=== PATIENT | female | born 1995 ===

== ENCOUNTER 2017-04-11 03:10 | Emergency (ER) | payer OTHER ==
[2017-04-11 03:11] VITALS: BMI 31.8
[2017-04-11 03:26] VITALS: BP 142/69; PULSE 93; RESP 18; TEMP 98.8; O2SAT 98
[2017-04-11] MEDS ORDERED: Sodium Chloride 0.9% 1,000 ML IV STA (03:39)
--- NOTE | 2017-04-11 03:47 | ED PDOC ---
HPI: Abdomen Time Seen by Provider: 04/11/17 03:14 Chief Complaint (Nursing): GI Problem Chief Complaint (Provider): Vomiting History Per: Patient History/Exam Limitations: no limitations Onset/Duration Of Symptoms: Hrs Outside of [place] travel?: No Current Symptoms Are (Timing): Still Present Location Of Pain/Discomfort: Epigastric Additional Complaint(s): Alannah Nath, a 21 year old female, presents to the ED complaining of vomiting. The patient states drank a lot of alcohol last night and reports that she woke up at 3am with vomiting and it has not stopped since. Denies fever and diarrhea but does admit to some epigastric pain. Past Medical History Reviewed: Historical Data, Nursing Documentation, Vital Signs Vital Signs: Last Vital Signs Temp 98.8 F 04/11/17 03:22 Pulse 93 H 04/11/17 03:22 Resp 18 04/11/17 03:22 BP 142/69 04/11/17 03:22 Pulse Ox 98 04/11/17 05:59 - Medical History PMH: No Chronic Diseases - Surgical History Surgical History: No Surg Hx, Appendectomy - Family History Family History: States: Unknown Family Hx - Social History Current smoker - smoking cessation education provided: No Ex-Smoker (has not smoked in the last 12 months): No Alcohol: Social Drugs: Denies - Home Medications Home Medications: Ambulatory Orders Medication Instructions Recorded Nitrofurantoin Macrocrystals 100 mg PO BID #10 cap 11/25/16 [Macrobid] - Allergies Allergies/Adverse Reactions: Allergies Allergy/AdvReac Type Severity Reaction Status Date / Time No Known Allergies Allergy Verified 04/11/17 03:21 Review of Systems ROS Statement: Except As Marked, All Systems Reviewed And Found Negative Constitutional: Negative for: Fever Gastrointestinal: Positive for: Vomiting, Abdominal Pain (Epigastric pain). Negative for: Diarrhea Physical Exam - Reviewed Nursing Documentation Reviewed: Yes Vital Signs Reviewed: Yes - Physical Exam Appears: Positive for: Non-toxic, No Acute Distress Head Exam: Positive for: ATRAUMATIC, NORMAL INSPECTION, NORMOCEPHALIC Skin: Positive for: Normal Color, Warm, Dry Eye Exam: Positive for: Normal appearance, EOMI, PERRL ENT: Positive for: Normal ENT Inspection Neck: Positive for: Normal, Painless ROM, Supple Cardiovascular/Chest: Positive for: Regular Rate, Rhythm, Chest Non Tender. Negative for: Tachycardia Respiratory: Positive for: Normal Breath Sounds. Negative for: Wheezing, Respiratory Distress Gastrointestinal/Abdominal: Positive for: Bowel Sounds, Soft, Tenderness (Mild epigastric tenderness). Negative for: Guarding, Rebound Back: Positive for: Normal Inspection Extremity: Positive for: Normal ROM. Negative for: Tenderness, Pedal Edema, Deformity, Swelling Neurologic/Psych: Positive for: Alert, Oriented - Laboratory Results Result Diagrams: 04/11/17 04:28 04/11/17 04:28 - ECG O2 Sat by Pulse Oximetry: 98 (RA) Pulse Ox Interpretation: Normal Medical Decision Making Medical Decision Makin Initial impression: 21 year old female presenting with vomiting post alcohol ingestion Initial Plan: * Alcohol serum * Comp metabolic panel * Lipase * CBC * Pepcid 20mg IVP * Zofran 4m IV * NS 1000mls IV 999mls/hr * Reevaluation Rule out alcohol induced emesis. 5:57 Patient is feeling better and is tolerating po. Patient is stable and will be discharged home. - Scribe Attestation Documented by Thao Parker acting as a scribe for Tati Nicole MD. Provider Attestation All medical record entries made by the Scribe were at my direction and personally dictated by me. I have reviewed the chart and agree that the record accurately reflects my personal performance of the history, physical exam, medical decision making, and the department course for this patient. I have also personally directed, reviewed, and agree with the discharge instructions and disposition. Disposition - Clinical Impression Clinical Impression: Vomiting - Patient ED Disposition Is Patient to be Admitted: No Counseled Patient/Family Regarding: Diagnosis - Disposition Referrals: Pati Lara [Primary Care Provider] - Disposition: Routine/Home Disposition Time: 05:20 Condition: GOOD Additional Instructions: follow up with your primary doctor in 1-2 days return to ED with any worsening or concerning symptom.s Instructions: Acute Nausea and Vomiting (ED)
[2017-04-11 04:31] LABS: BASO % 0.3 % (0.0-2.0); EOS % 0.4 % (0.0-4.0); HEMOGLOBIN 12.7 g/dL (12.0-16.0); LYMPH % 15.1 % (20.0-40.0); MEAN CELL VOLUME 85.8 fl (81.0-99.0); MEAN CORPUSCULAR HEMOGLOBIN 29.4 pg (27.0-31.0); MEAN CORPUSCULAR HGB CONC 34.3 g/dL (33.0-37.0); MEAN PLATELET VOLUME 8.2 fl (7.2-11.7); MONO # 0.8 K/uL (0.0-0.8); MONO % 5.9 % (0.0-10.0); NEUT # 10.2 K/uL (1.8-7.0); NEUT % 78.3 % (50.0-75.0); RBC 4.32 Mil/uL (3.80-5.20); RED CELL DISTRIBUTION WIDTH 13.6 % (11.5-14.5)
[2017-04-11 04:40] LABS: ALB/GLOB RATIO 1.5 (1.0-2.1); ALBUMIN 4.5 g/dL (3.5-5.0); ALT/SGPT 42 U/L (9-52); AST/SGOT 33 U/L (14-36); BLOOD UREA NITROGEN 11 mg/dl (7-17); CALCIUM 9.5 mg/dL (8.4-10.2); GFR AFRICAN-AMERICAN > 60; GFR NON-AFRICAN AMERICAN > 60; LIPASE 60 U/L (23-300)
== END 2017-04-11 06:21 | disposition home or self-care (01) ==
LOC: H.ER 03:10
DX: R11.10 Vomiting, unspecified (principal); Z87.891 Personal history of nicotine dependence

== ENCOUNTER 2017-04-27 21:11 | Emergency (ER) | payer OTHER ==
[2017-04-27 21:11] VITALS: BMI 31.8
[2017-04-27 21:26] VITALS: BP 121/66; PULSE 87; RESP 16; TEMP 98; O2SAT 100
--- NOTE | 2017-04-27 22:06 | ED PDOC ---
HPI: Abdomen Time Seen by Provider: 04/27/17 21:35 Chief Complaint (Nursing): Female Genitourinary Chief Complaint (Provider): Lower Abdominal Pain and Lower Back Pain History Per: Patient History/Exam Limitations: no limitations Onset/Duration Of Symptoms: Days (x7 days) Outside of [place] travel?: No Current Symptoms Are (Timing): Still Present Associated Symptoms: denies: Fever, Vomiting Additional Complaint(s): Alannah Nath, a 21 year old female, presents to the ED with complaints of intermittent abdominal pain and lower back pain x1 week. The patient reports that today the pain got worse and became constant and is now radiating into the vaginal area. She states that she feels some burning when she urinates. The patient reports that she has not taken anything for the pain. Denies vomiting, fever but did note some loose stools today. Past Medical History Reviewed: Historical Data, Nursing Documentation, Vital Signs Vital Signs: Last Vital Signs Temp 98.0 F 04/27/17 21:23 Pulse 87 04/27/17 21:23 Resp 16 04/27/17 21:23 BP 121/66 04/27/17 21:23 Pulse Ox 100 04/28/17 01:37 - Medical History PMH: No Chronic Diseases - Surgical History Surgical History: Appendectomy, - Family History Family History: States: Unknown Family Hx - Home Medications Home Medications: Ambulatory Orders Medication Instructions Recorded Nitrofurantoin Macrocrystals 100 mg PO BID #10 cap 04/28/17 [Macrobid] - Allergies Allergies/Adverse Reactions: Allergies Allergy/AdvReac Type Severity Reaction Status Date / Time No Known Allergies Allergy Verified 04/11/17 03:21 Review of Systems ROS Statement: Except As Marked, All Systems Reviewed And Found Negative Constitutional: Negative for: Fever Gastrointestinal: Positive for: Abdominal Pain (lower abdominal pain) Genitourinary Female: Positive for: Dysuria Musculoskeletal: Positive for: Back Pain (Lower back pain) Physical Exam - Reviewed Nursing Documentation Reviewed: Yes Vital Signs Reviewed: Yes - Physical Exam Appears: Positive for: Non-toxic, Uncomfortable Head Exam: Positive for: ATRAUMATIC, NORMAL INSPECTION, NORMOCEPHALIC Skin: Positive for: Normal Color, Warm, Dry Eye Exam: Positive for: Normal appearance, EOMI, PERRL Neck: Positive for: Normal, Painless ROM, Supple Cardiovascular/Chest: Positive for: Regular Rate, Rhythm, Chest Non Tender. Negative for: Tachycardia Respiratory: Positive for: Normal Breath Sounds. Negative for: Wheezing, Respiratory Distress Gastrointestinal/Abdominal: Positive for: Bowel Sounds, Soft, Tenderness ( Suprapubic tenderness). Negative for: Distended, Guarding, Rebound Back: Positive for: Normal Inspection, Vertebral Tenderness (Lower back tenderness paraspinally). Negative for: L CVA Tenderness, R CVA Tenderness Extremity: Positive for: Normal ROM. Negative for: Tenderness, Pedal Edema, Deformity, Swelling Neurologic/Psych: Positive for: Alert, Oriented - Laboratory Results Result Diagrams: 04/27/17 22:58 04/27/17 22:58 - ECG O2 Sat by Pulse Oximetry: 100 (RA) Pulse Ox Interpretation: Normal Medical Decision Making Medical Decision Makin Initial Impression: 21 year old female presenting with abdominal pain and back pain Differentials: UTI, Associated Complications rule out ovarian cyst/ rupture Initial Plan: * Comp Metabolic Panel * Upreg * Udip * CBC * Reevaluation Upreg results are positive. Therefore ectopic and threatened are now being considered. -Transvaginal US ordered. 134 US Transvaginal FINDINGS: Gestation: Single live intrauterine gestation. heart rate of 152 beats per minute. [place]-rump length of 0.37 cm, correlating with gestational age of 6 weeks 0 days. Uterus/cervix: No subchorionic hemorrhage. No cervical dilatation or effacement. Ovaries: RIGHT ovary: Normal. LEFT ovary: 1.8 x 2.3 x 1.9 cm hypoechoic lesion with internal echoes. No adnexal masses. Free fluid: No significant free fluid. IMPRESSION: 1. Single live intrauterine gestation. 2. Probable complex LEFT ovarian cyst. 3. Incidental/non-acute findings are described above. Scribe Attestation Documented by Thao Parker and Gale Borjas acting as a scribe for Miko Ireland MD. Provider Attestation: All medical record entries made by the Scribe were at my direction and personally dictated by me. I have reviewed the chart and agree that the record accurately reflects my personal performance of the history, physical exam, medical decision making, and the department course for this patient. I have also personally directed, reviewed, and agree with the discharge instructions and disposition. Disposition - Clinical Impression Clinical Impression: Abdominal pain during , UTI (urinary tract infection) - Patient ED Disposition Is Patient to be Admitted: No Doctor Will See Patient In The: Office Counseled Patient/Family Regarding: Studies Performed, Diagnosis, Need For Followup - Disposition Referrals: [facility] [Outside] Disposition: Routine/Home Disposition Time: 01:37 Condition: GOOD Additional Instructions: Take tylenol for pain. Take vitamins daily. Follow up with your PCP in 2-3 days. Prescriptions: Nitrofurantoin Macrocrystals [Macrobid] 100 mg PO BID #10 cap Instructions: Abdominal Pain in (ED), Urinary Tract Infection in Women (DC)
[2017-04-27 23:02] LABS: BASO # 0.1 K/uL (0.0-0.2); BASO % 0.8 % (0.0-2.0); EOS # 0.1 K/uL (0.0-0.7); EOS % 1.3 % (0.0-4.0); HEMATOCRIT 36.4 % (34.0-47.0); LYMPH # 2.5 K/uL (1.0-4.3); LYMPH % 26.9 % (20.0-40.0); MEAN CELL VOLUME 88.3 fl (81.0-99.0); MEAN CORPUSCULAR HEMOGLOBIN 28.9 pg (27.0-31.0); MEAN CORPUSCULAR HGB CONC 32.7 g/dL (33.0-37.0); MEAN PLATELET VOLUME 8.6 fl (7.2-11.7); MONO # 0.7 K/uL (0.0-0.8); MONO % 7.2 % (0.0-10.0); NEUT % 63.8 % (50.0-75.0); NRBC % 0.1 % (0.0-0.0); RED CELL DISTRIBUTION WIDTH 13.5 % (11.5-14.5); WHITE BLOOD COUNT 9.4 K/uL (4.8-10.8)
[2017-04-27 23:17] LABS: ALB/GLOB RATIO 1.5 (1.0-2.1); ALKALINE PHOSPHATASE 71 U/L (38-126); ALT/SGPT 42 U/L (9-52); AST/SGOT 26 U/L (14-36); BILIRUBIN,TOTAL 0.4 mg/dl (0.2-1.3); BLOOD UREA NITROGEN 12 mg/dl (7-17); CARBON DIOXIDE 22 mmol/L (22-30); CHLORIDE 106 mmol/L (98-107); GFR AFRICAN-AMERICAN > 60; GLUCOSE,RANDOM 90 mg/dL (65-105); POTASSIUM 4.3 MMOL/L (3.6-5.0); SODIUM 139 mmol/l (132-148); TOTAL PROTEIN 7.2 G/DL (6.3-8.2)
--- NOTE | 2017-04-28 01:33 | US ---
EXAM: US , Transvaginal CLINICAL HISTORY: 21 years old, female; Pain; Other: Vaginal pain, back pain, abd pain; Gestational age or lmp: Lmp 02/23/2017; ; Additional info: Lower abdominal pain TECHNIQUE: Real-time transvaginal obstetrical ultrasound of the maternal pelvis and a first trimester with image documentation. Transvaginal imaging was used for better evaluation of the fetus and adnexa. COMPARISON: US - TRANSVAGINAL 03/02/2016 1:05:40 AM FINDINGS: Gestation: Single live intrauterine gestation. heart rate of 152 beats per minute. [place]-rump length of 0.37 cm, correlating with gestational age of 6 weeks 0 days. Uterus/cervix: No subchorionic hemorrhage. No cervical dilatation or effacement. Ovaries: RIGHT ovary: Normal. LEFT ovary: 1.8 x 2.3 x 1.9 cm hypoechoic lesion with internal echoes. No adnexal masses. Free fluid: No significant free fluid. IMPRESSION: 1. Single live intrauterine gestation. 2. Probable complex LEFT ovarian cyst. 3. Incidental/non-acute findings are described above.
== END 2017-04-28 02:15 | disposition home or self-care (01) ==
LOC: H.ER 21:11
DX: O23.40 Unspecified infection of urinary tract in pregnancy, unspecified trimester (principal)

== ENCOUNTER 2017-05-20 22:55 | Emergency (ER) | payer OTHER ==
[2017-05-20 22:56] VITALS: BMI 31.8
[2017-05-20 23:12] VITALS: RESP 16
[2017-05-20 23:52] LABS: BASO # 0.1 K/uL (0.0-0.2); BASO % 0.6 % (0.0-2.0); EOS # 0.1 K/uL (0.0-0.7); EOS % 1.1 % (0.0-4.0); HEMOGLOBIN 12.2 g/dL (12.0-16.0); LYMPH # 2.7 K/uL (1.0-4.3); LYMPH % 21.7 % (20.0-40.0); MEAN CELL VOLUME 87.9 fl (81.0-99.0); MEAN PLATELET VOLUME 8.8 fl (7.2-11.7); MONO # 0.8 K/uL (0.0-0.8); MONO % 6.1 % (0.0-10.0); NEUT # 8.8 K/uL (1.8-7.0); NEUT % 70.5 % (50.0-75.0); NRBC % 0.1 % (0.0-0.0); RBC 4.2 Mil/uL (3.80-5.20); RED CELL DISTRIBUTION WIDTH 13.2 % (11.5-14.5); WHITE BLOOD COUNT 12.4 K/uL (4.8-10.8)
[2017-05-21 00:04] LABS: SQUAMOUS EPITHIAL 3 /hpf (0-5); URINE BACTERIA RARE (<OCC); URINE BILIRUBIN NEGATIVE (NEGATIVE); URINE BLOOD NEGATIVE (NEGATIVE); URINE CLARITY SLIGHTY-CLOUDY (Clear); URINE COLOR YELLOW (YELLOW); URINE GLUCOSE (UA) NEG (Normal); URINE LEUKOCYTE ESTERASE TRACE Leu/uL (Negative); URINE NITRATE POSITIVE (NEGATIVE); URINE PROTEIN NEGATIVE (NEGATIVE); URINE UROBILINOGEN 0.2-1.0 mg/dL (0.2-1.0)
[2017-05-21 00:08] LABS: ALB/GLOB RATIO 1.3 (1.0-2.1); ALBUMIN 4.2 g/dL (3.5-5.0); ALT/SGPT 31 U/L (9-52); AST/SGOT 25 U/L (14-36); BLOOD UREA NITROGEN 9 mg/dl (7-17); CALCIUM 9.2 mg/dL (8.4-10.2); GFR AFRICAN-AMERICAN > 60; GFR NON-AFRICAN AMERICAN > 60; LIPASE 62 U/L (23-300)
--- NOTE | 2017-05-21 01:19 | US ---
EXAM: US Uterus, Limited CLINICAL HISTORY: 22 years old, female; Pain; Other: Rt adnexal tenderness; Gestational age or lmp: 02/16/17; ; Additional info: Right adnexal tenderness TECHNIQUE: Real-time ultrasound of the maternal uterus (limited) with image documentation. COMPARISON: US - OB TRANSVAGINAL 04/28/2017 12:58:38 AM FINDINGS: A single intrauterine gestation is identified with a crown-rump length measuring 2.6 cm, corresponding to an approximate gestational age of 9 weeks and 2 days. cardiac activity is identified at a rate of 162 beats per minute. The cervix measures 5 cm, and is closed. The right ovary is unremarkable in echogenicity and size measuring 2.9 x 1.0 x 2.6 cm. The left ovary is increased in size measuring 3.2 x 2.3 x 2.8 cm. A complex focus is identified with in the left ovary measuring 2.2 x 1.7 x 2.1 cm. No free fluid is detected. IMPRESSION: Single intrauterine gestation with an approximate gestational age of 9 weeks and 2 days. cardiac activity is identified. The cervix is closed. Complex cyst within the left ovary measuring 2.2 cm in greatest dimension. Right ovary is unremarkable. Please correlate these findings with the serum beta hCG with short term followup, recommended.
--- NOTE | 2017-05-21 01:20 | US ---
EXAM: US Abdomen Limited, Right Upper Quadrant CLINICAL HISTORY: 22 years old, female; Signs and symptoms; Vomiting; ; Additional info: R/O gallstones TECHNIQUE: Real-time ultrasound of the right upper quadrant with image documentation. COMPARISON: No relevant prior studies available. FINDINGS: Liver: The liver is unremarkable in size measuring 14.7 cm in longitudinal dimension. No intrahepatic bile duct dilation. Gallbladder: No acute findings. No gallstones. Common bile duct: No stones. No dilation, measuring 3 mm. Pancreas: Visualization of the pancreas is limited by overlying bowel gas. Right kidney: No acute findings. No obstructing stones. No solid mass. No hydronephrosis. IMPRESSION: Unremarkable sonographic evaluation of the right upper quadrant, as detailed above. Limited evaluation of the pancreas, secondary to overlying bowel gas.
--- NOTE | 2017-05-21 01:29 | US ---
EXAM: US Abdomen Limited, Appendix CLINICAL HISTORY: 22 years old, female; Pain; Abdominal pain; Other: Rlq/mid pelvis as per pt. ; ; Additional info: Right lower quadrant TECHNIQUE: Real-time ultrasound of the right lower quadrant with image documentation. COMPARISON: US - ABDOMEN LIMITED (GB INCLUDED) 05/21/2017 12:17:27 AM FINDINGS: Appendix: The appendix is not visualized. Free fluid: No free fluid. IMPRESSION: The appendix is not visualized. Based on these findings, acute appendicitis cannot be excluded. However, without the presence of free fluid, this diagnosis is less likely.
[2017-05-21] MEDS ORDERED: cefTRIAXone (Rocephin) 1 gm Inj IVPB ONE (02:26)
--- NOTE | 2017-05-21 02:59 | ED PDOC ---
HPI: Abdomen Time Seen by Provider: 05/21/17 00:19 Chief Complaint (Nursing): Abdominal Pain Chief Complaint (Provider): abdominal pain History Per: Patient (22 y/o female A2 LMP 02/2017 here with abdominal pain cramping x 1 week/ epigastric pain worsening today with vomiting. Denies any fevers/chills. Has been seen in ED 2 weeks prior and noted to have IUP and ovarian cyst. Denies any dysuria/urinary frequency/hematuria.) Past Medical History Reviewed: Historical Data, Nursing Documentation, Vital Signs Vital Signs: Last Vital Signs Temp 98.6 F 05/21/17 03:00 Pulse 77 05/21/17 03:00 Resp 16 05/21/17 03:00 BP 110/54 L 05/21/17 03:00 Pulse Ox 100 05/21/17 03:05 - Surgical History Surgical History: Appendectomy, - Family History Family History: States: Unknown Family Hx - Home Medications Home Medications: Ambulatory Orders Medication Instructions Recorded Nitrofurantoin Macrocrystals 100 mg PO BID #10 cap 04/28/17 [Macrobid] Cephalexin [Keflex] 1 tab PO Q6 PRN #28 capsule 05/21/17 - Allergies Allergies/Adverse Reactions: Allergies Allergy/AdvReac Type Severity Reaction Status Date / Time No Known Allergies Allergy Verified 04/11/17 03:21 Review of Systems ROS Statement: Except As Marked, All Systems Reviewed And Found Negative Physical Exam - Reviewed Nursing Documentation Reviewed: Yes Vital Signs Reviewed: Yes - Physical Exam Appears: Positive for: Well, Non-toxic, No Acute Distress Head Exam: Positive for: ATRAUMATIC, NORMAL INSPECTION, NORMOCEPHALIC Skin: Positive for: Normal Color, Warm, DRY Eye Exam: Positive for: EOMI, Normal appearance, PERRL ENT: Positive for: Normal ENT Inspection Neck: Positive for: Normal, Painless ROM Cardiovascular/Chest: Positive for: Regular Rate, Rhythm Respiratory: Positive for: CNT, Normal Breath Sounds Gastrointestinal/Abdominal: Positive for: Normal Exam, Bowel Sounds, Soft, Tenderness (rlq) Pelvic Exam: Positive for: Tender Adnexa (tender above adnexa. Mild vaginal discharge noted.). Negative for: No Cerv. Motion Tender Back: Positive for: Normal Inspection Extremity: Positive for: Normal ROM Neurologic/Psych: Positive for: Alert, Oriented - Laboratory Results Result Diagrams: 05/20/17 23:48 05/20/17 23:48 - ECG O2 Sat by Pulse Oximetry: 100 - Progress ED Course And Treament: US abdomen RUQ: wnl US abdomen RLQ: unable to visualize appendix US pelvic: IMPRESSION: Single intrauterine gestation with an approximate gestational age of 9 weeks and 2 days. cardiac activity is identified. The cervix is closed. Complex cyst within the left ovary measuring 2.2 cm in greatest dimension. Right ovary is unremarkable. Please correlate these findings with the serum beta hCG with short term followup , recommended. Thank you for allowing us to participate in the care of your patient. Dictated and Authenticated by: Griselda Vivas MD GC sent Urinalysis positive for UTI. Keflex 500 mg x 1 dose Patient re-examined with tenderness right inguinal region. Disposition - Clinical Impression Clinical Impression: Abdominal pain during - Patient ED Disposition Is Patient to be Admitted: No - Disposition [facility] Disposition: Routine/Home Disposition Time: 03:32 Condition: FAIR Prescriptions: Cephalexin [Keflex] 1 tab PO Q6 PRN #28 capsule PRN Reason: Urinary Discomt Instructions: Urinary Tract Infection in Women (GEN), Abdominal Pain in (ED) Forms: [employer] (Azeri)
[2017-05-21 03:01] VITALS: BP 110/54; PULSE 77; TEMP 98.6
[2017-05-21 03:02] VITALS: O2SAT 100
== END 2017-05-21 03:44 | disposition home or self-care (01) ==
LOC: H.ER 22:55
DX: O26.891 Other specified pregnancy related conditions, first trimester (principal); Z3A.09 9 weeks gestation of pregnancy; R10.13 Epigastric pain

== ENCOUNTER 2017-09-10 17:46 | Emergency (ER) | payer MEDICAID, OTHER ==
[2017-09-10 18:06] VITALS: BMI 33.6
--- NOTE | 2017-09-10 18:55 | OBHP ---
Datetime: 09/10/2017 18:20 IP Adm Impression: , intrauterine ; No Active Labor; Intact Membranes IP Admit Plan: Observation/Evaluation Admit Comment, IP Provider: 22yo IOUP at 26w c/o bakc pain since last night. 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 Did not lift anything., No meds. She went to sleep and still felt pain. AP care: [facility] - no complicatoins ex small ovarian cyst Chart rev'd EDC Dec 7 PMH: denies PSH: denies POBH: x 1 PGYNH: No STD A: IUP at 26w back pain appears musculoskeletal Hx ovarian cyst PLAN: check UA Pelvic Type - PN: Adequate Extremities - PN: Normal Abdomen - PN: Normal Back - PN: Normal Breast - PN: Not Done Lungs - PN: Normal Heart - PN: Normal Thyroid - PN: Normal Neurologic - PN: Normal HEENT - PN: Normal General - PN: Normal FHR - Baseline A Provider: 140 Membranes, Provider: Intact Comments, ACOG Physical Exam: ROS: General: No weakness; no fatigue HEENT: no JAMES; no visual dist CV: no CP; no palpitations Resp: no SOB; no Cough GI: no N/V/D : no F/U/D Back no CVA tenderness Pool Provider: Negative IP Hx Assessment: The History has been Reviewed and is Current IP Chief Complaint: Other NICHD Variability Prov Fetus A: Moderate 6-25bpm NICHD Accel Fetus A IP Provider: 10X10 FHR Category Provider Fetus A: Category I NICHD Decel Fetus A IP Provider: None Dilatation, Provider: 0 Effacement, Provider: 0 Genitourinary Exam: Normal DTRs - PN: Normal
[2017-09-10 19:21] LABS: RBC URINE < 1 /hpf (0-3); URINE BACTERIA OCC (<OCC); URINE BILIRUBIN NEGATIVE (NEGATIVE); URINE BLOOD NEGATIVE (NEGATIVE); URINE COLOR YELLOW (YELLOW); URINE GLUCOSE (UA) NEG (Normal); URINE KETONE NEGATIVE (NEGATIVE); URINE LEUKOCYTE ESTERASE NEG Leu/uL (Negative); URINE PROTEIN NEGATIVE (NEGATIVE); URINE UROBILINOGEN 0.2-1.0 mg/dL (0.2-1.0)
--- NOTE | 2017-09-11 07:29 | OBDCSUM ---
Datetime: 09/10/2017 19:56 Discharged to, Provider: Home Follow up at, Provider: [facility] Disch Instr Activity: Normal activity Disch Instr Diet: Regular Discharge Instructions, Provider: Routine instructions given Discharge Time: 09/10/2017 20:00 Follow up in weeks, Provider: 09/20/2017 Disch Referrals: None Discharge Comment, Provider: UA negative no evid of pyelonephrisit Discharge Diagnosis Prov Other: back pain - musculoskeletal
[2017-09-11 08:09] VITALS: BP 117/67; PULSE 92; RESP 20; TEMP 98.3; O2SAT 100
== END 2017-09-10 20:05 | disposition home or self-care (01) ==
LOC: H.EROB2 17:46
DX: O26.92 Pregnancy related conditions, unspecified, second trimester (principal); M54.9 Dorsalgia, unspecified; Z3A.26 26 weeks gestation of pregnancy

== ENCOUNTER 2017-10-28 09:39 | Emergency (ER) | payer MEDICAID ==
[2017-10-28 10:08] VITALS: BMI 33.5
--- NOTE | 2017-10-28 10:48 | OBHP ---
Datetime: 10/28/2017 10:39 IP Adm Impression: , intrauterine ; No Active Labor IP Chief Complaint Other: Cough IP Adm Impression Other: Respiratory tract Infection( Viral) IP Admit Plan: Observation/Evaluation; Discharge home Admit Comment, IP Provider: 22yo with IUP at 33wks presents here today c/o cough with running n ose since yesterday. She denies any fever, Chest pain or chills and denies sputum. Denies VB or LOF. Chest: Clinically clear Abd: Soft, NT, BS- present. Philo- None, FHR - Category 1, Cx- 0/0/-3 Assessment: IUP at 33wks NST Reactive. Upper Respiratory Tract Infection( Viral Syndrome. Plan: D/C Home F/U with OB Clinic within 1 week. Rubitussin for cough. Instructions to return with worsening symptoms. General - PN: Normal Presentation-Admit: Vertex FHR - Baseline A Provider: 150 Membranes, Provider: Intact Gestation - Est Wks by US: 33.2 EGA AdmitDate IP: 33.2 Vital Signs Provider: Reviewed; Within Normal Limits IP Chief Complaint: Maternal discomfort NICHD Variability Prov Fetus A: Moderate 6-25bpm NICHD Accel Fetus A IP Provider: 15X15 FHR Category Provider Fetus A: Category I NICHD Decel Fetus A IP Provider: None Dilatation, Provider: 0 Effacement, Provider: 0 Station, Provider: -3
[2017-10-28 19:21] VITALS: BP 114/59; PULSE 100; TEMP 98.2
== END 2017-10-28 10:50 | disposition home or self-care (01) ==
LOC: H.EROB2 09:39 → H.EROB 10:01 → H.EROB2 10:50
DX: O26.93 Pregnancy related conditions, unspecified, third trimester (principal); R05 Cough; R09.89 Other specified symptoms and signs involving the circulatory and respiratory systems; Z3A.33 33 weeks gestation of pregnancy

== ENCOUNTER 2017-12-06 20:29 | Emergency (ER) | payer MEDICAID ==
--- NOTE | 2017-12-06 21:30 | OBDCSUM ---
Datetime: 12/06/2017 21:27 Discharged to, Provider: Home Follow up at, Provider: [facility] Disch Instr Activity: Normal activity Disch Instr Diet: Regular Discharge Instructions, Provider: Routine instructions given Discharge Diagnosis, Provider: False Labor - Undelivered Follow up in weeks, Provider: this Tuesday as scheduled Disch Referrals: None Contraception discussed, Prov: Yes
[2017-12-07 01:53] VITALS: BP 114/63; PULSE 95; TEMP 98
== END 2017-12-06 21:45 | disposition home or self-care (01) ==
LOC: H.EROB2 20:29 → H.L&D 21:05 → H.EROB2 21:45
DX: O47.1 False labor at or after 37 completed weeks of gestation (principal); Z3A.39 39 weeks gestation of pregnancy; O26.93 Pregnancy related conditions, unspecified, third trimester; R10.2 Pelvic and perineal pain

== ENCOUNTER 2017-12-08 11:34 | Inpatient (IN) | payer MEDICAID ==
[2017-12-08 13:00] VITALS: BMI 34.0
--- NOTE | 2017-12-08 15:16 | US ---
PROCEDURE: Limited obstetrical ultrasound examination/ biophysical profile HISTORY: ?SROM at 1100 today COMPARISON: Not available TECHNIQUE: Transabdominal FINDINGS: Ultrasound examination demonstrates a single live intrauterine gestation in cephalic presentation. The heart rate is 162 beats per minute. A normal quantity of amniotic fluid is visualized. The KASANDRA is 15.3 cm. A left anterior placenta is identified. Placenta previa not excluded on the basis of this examination. Limited visualization of the internal cervical os due to cephalic presentation in late 3rd trimester. biometry not performed at this time. anatomy not assessed. Limited biophysical profile examination yields a score of 8 out of 8. IMPRESSION: Single live intrauterine gestation in cephalic presentation. heart rate 162. Normal amniotic fluid volume. Left anterior placenta. Cervix long and closed. Biophysical profile score is 8 out of 8.
[2017-12-08] MEDS: Lactated Ringer's 1,000 ML IV SCH ×2 (16:00→17:00)
[2017-12-08 16:12] LABS: SQUAMOUS EPITHIAL 3 /hpf (0-5); URINE BACTERIA OCC (<OCC); URINE BILIRUBIN NEGATIVE (NEGATIVE); URINE BLOOD NEGATIVE (NEGATIVE); URINE CALCIUM OXALATE CRYSTALS OCC /hpf (<OCC); URINE CLARITY CLOUDY (Clear); URINE COLOR AMBER (YELLOW); URINE GLUCOSE (UA) NEG (Normal); URINE LEUKOCYTE ESTERASE MOD Leu/uL (Negative); URINE NITRATE NEGATIVE (NEGATIVE); URINE PROTEIN 30 mg/dL (NEGATIVE)
[2017-12-08] MEDS ORDERED: Lactated Ringer's 1,000 ML IV SCH (16:30)
[2017-12-08] MEDS ORDERED: Fentanyl/Bupivacaine HCl 250 ML EPI ONE (16:50)
[2017-12-08] MEDS ORDERED: Oxytocin 30 UNITS in Sodium Chloride 0.9% 500 ML IV ONE ×2 (17:14→17:37)
[2017-12-08 17:20] LABS: BASO # 0.1 K/uL (0.0-0.2); BASO % 0.7 % (0.0-2.0); EOS # 0.1 K/uL (0.0-0.7); EOS % 0.5 % (0.0-4.0); LYMPH # 2.1 K/uL (1.0-4.3); LYMPH % 17.6 % (20.0-40.0); MEAN CELL VOLUME 87.8 fl (81.0-99.0); MEAN CORPUSCULAR HEMOGLOBIN 29.3 pg (27.0-31.0); MEAN CORPUSCULAR HGB CONC 33.4 g/dL (33.0-37.0); MEAN PLATELET VOLUME 9.5 fl (7.2-11.7); MONO # 0.8 K/uL (0.0-0.8); MONO % 6.6 % (0.0-10.0); NEUT # 8.8 K/uL (1.8-7.0); NEUT % 74.6 % (50.0-75.0); NRBC % 0.1 % (0.0-0.0); RBC 4.08 Mil/uL (3.80-5.20); WHITE BLOOD COUNT 11.8 K/uL (4.8-10.8)
[2017-12-08] MEDS ORDERED: Oxytocin 30 units/LR 500ML 30 U/500 ML BAG IV ONE (17:33)
--- NOTE | 2017-12-09 00:26 | OBPN ---
Datetime: 12/09/2017 00:21 IP Progress Impression: Normal progression of labor; Reassuring heart rate IP Procedures: Sterile Vag Exam IP Progress Plan: Continue present management; Augmentation; Anesthesia consult Contraction Comments Provider: q2min FHR - Baseline A Provider: 140s IP Progress Note Comment: Pt requesting epidural. Contact anesthesia for epidural. Both MWB/FWB re assuring at this time. Vital Signs Provider: Reviewed; Within Normal Limits NICHD Variability Prov Fetus A: Moderate 6-25bpm Dilatation, Provider: 6 Effacement, Provider: 50 Station, Provider: -1 Datetime: 12/08/2017 17:47 Pool Provider: Positive Presentation-Admit: Vertex NICHD Accel Fetus A IP Provider: 15X15 FHR Category Provider Fetus A: Category I Datetime: 12/06/2017 21:00 Membranes, Provider: Intact IP Fetus A Comments: Sonogram ceph Datetime: 10/28/2017 10:39 Gestation - Est Wks by US: 33.2 NICHD Decel Fetus A IP Provider: None
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
[2017-12-09] MEDS ORDERED: Lidocaine 1% Inj (20ml) ONE (03:16)
[2017-12-09] MEDS ORDERED: Benzocaine/Menthol SPRAY TOP PRN (03:42)
[2017-12-09] MEDS ORDERED: Oxycodone/Acetaminophen 5/325 mg Tab PO PRN ×3 (03:42→07:07)
--- NOTE | 2017-12-09 08:26 | OBDS ---
DELIVERY PERSONNEL Delivery Doctor: Lisa Ledezma MD Thread Grinder Tool: Riana Verduzco RN Anesthesiologist: Joao Resident: Cosmo MATERNAL INFORMATION Delivery Anesthesia: Local; Epidural Medications in Delivery: Oxytocin Estimated Blood Loss (ml): 200 Placenta Cultured: No Maternal Complications: None Provider Comments: Normal spontaneous vaginal delivery. Dilated with Apgars of 9 and 9 at one and 5 minutes respectively, placenta delivered sponta neously. Infant delivered via ROMAN position. Laceration repaired, as above. uterus Firm and appropriat mena hemostatic following delivery. Patient tolerated delivery and repair well. No complications. The estimated blood loss 200 mL. LABOR SUMMARY EDC: 12/24/2017 00:00 No. Babies in Womb: 1 Attempted: No Labor Anesthesia: Epidural LABOR INFORMATION Reason for Induction: Not Applicable Onset of Labor: 12/09/2017 00:40 Complete Dilatation: 12/09/2017 03:10 Oxytocin: Augmentation Group B Beta Strep: Negative Steroids Given: None Reason Steroids Not Administered: Not Applicable MEMBRANES Membranes Rupture Method: Artificial Rupture of Membranes: 12/09/2017 03:24 Length of Rupture (hrs): 0.13 Amniotic Fluid Color: Clear Amniotic Fluid Amount: Moderate Amniotic Fluid Odor: Normal STAGES OF LABOR Stage 1 hrs: 2 Stage 1 min: 30 Stage 2 hrs: 0 Stage 2 min: 22 Stage 3 hrs: 0 Stage 3 min: 2 Total Time in Labor hrs: 2 Total Time in Labor min: 54 VAGINAL DELIVERY Episiotomy: None Laceration Extension: First Degree Laceration Type: Perineal Laceration Repair: Yes Laceration Repair Note: First-degree midline peroneal laceration. Area infiltrated with 1% lidocaine . Laceration repaired with 2. 0 Rapide without complication. Patient tolerated repair well. Initial Vag Sponge Count: 5 Final Vag Sponge Count: 5 Initial Vag Sharps Count: 2 Final Vag Sharps Count: 2 Sponge Count Correct: Yes Sharps Count Correct: Yes BABY A INFORMATION Delivery Date/Time: 12/09/2017 03:32 Method of Delivery: Vaginal Born in Route : No : N/A Forceps: N/A Vacuum Extraction: N/A Shoulder Dystocia : No SHOULDER DYSTOCIA BABY A Infant Delivery Date/Time: 12/09/2017 03:32 PRESENTATION/POSITION BABY A Presentation: Cephalic Cephalic Presentation: Vertex PLACENTA INFORMATION BABY A Placenta Delivery Time : 12/09/2017 03:34 Placenta Method of Delivery: Spontaneous Placenta Status: Delivered INFORMATION BABY A Gestational Age at Delivery: 39.0 Gestational Status: Term Infant Outcome : Liveborn Infant Condition : Stable Sex: Male IDENTIFICATION/MEDS BABY A ID Band Number: [id number] ID Band Location: Left Leg; Left Arm WEIGHT/LENGTH BABY A Birthweight (gms): 3585 Infant Weight (lb): 7 Infant Weight (oz): 14 CORD INFORMATION BABY A No. Cord Vessels: 3 Nuchal Cord : N/A Cord Blood Taken: Yes Infant Suction: Mouth; Nose
[2017-12-09] MEDS: Benzocaine/Menthol SPRAY TOP PRN ×2 (10:06→21:49)
[2017-12-10 07:27] LABS: HEMOGLOBIN 11.1 g/dL (12.0-16.0); MEAN CELL VOLUME 87.8 fl (81.0-99.0); MEAN CORPUSCULAR HEMOGLOBIN 29.9 pg (27.0-31.0); MEAN CORPUSCULAR HGB CONC 34.1 g/dL (33.0-37.0); RBC 3.71 Mil/uL (3.80-5.20); RED CELL DISTRIBUTION WIDTH 13.8 % (11.5-14.5); WHITE BLOOD COUNT 11.2 K/uL (4.8-10.8)
[2017-12-10] MEDS: Oxycodone/Acetaminophen 5/325 mg Tab PO PRN (14:02)
[2017-12-11] MEDS: Oxycodone/Acetaminophen 5/325 mg Tab PO PRN ×2 (02:04→09:11)
[2017-12-11] MEDS: Benzocaine/Menthol SPRAY TOP PRN (12:07)
--- NOTE | 2017-12-11 12:49 | OBDCSUM ---
Datetime: 12/11/2017 08:57 Discharged to, Provider: Home Follow up at, Provider: Ava MALDONADOt given Disch Instr Activity: Normal activity; May be up to bathroom; May be up for meals; May Shower Disch Instr Diet: Regular Discharge Instructions, Provider: Routine instructions given Discharge Diagnosis, Provider: Term Delivered Discharge Time: 12/11/2017 10:00 Follow up in weeks, Provider: 4-6 weeks PP and 2-3 days hogshead salvage Disch Referrals: None Contraception discussed, Prov: Yes Disch Activity Restrictions: Minimize stair-climbing; No sexual activity; Nothing in vagina - Interc ourse, tampons, douche Discharge Comment, Provider: 22 y/o now seen and examined at bedside this morning. No acute event overnight, patient aware of discharge day today. Ambulating, , voiding and tolera ting PO intake w/o any difficulty. + BM today. Denies bleeding, vomiting, nausea, chest pain, SOB. Re ports mild pain but well controlled on medication. Baby is doing well as per mom. Physical Exam: General: A_O, resting comfortably in bed, NAD HEENT: oral mucosa moist. Lungs: CTA B/L, no wheezing, rhonchi or rales CVS: RRR, S1, S2 ABD: ND, +BS, firm fundus @ umbilical level. Soft, appropriate TTP. EXT: no edema, negative Nando's sign, Neuro/psych: AAOX3. A/P: 22 y/o now doing well on PPD 2 Encourage and ambulating Ibuprofen 600mg for pain Ambulatory with caution Nothing per Vagina, no heavy lifting, avoid stairs for few days If excessive bleeding or fever without relief from Tylenol go to ED Follow up at [facility] with in one week Follow up with PCP for mom, Appt given Case d/w on-call OB hospitalist
--- NOTE | 2017-12-11 12:49 | OBPPN ---
Datetime: 12/11/2017 08:51 PP Pain Prov: Within normal limits PP Flatus Prov: Yes PP Heart Prov: Normal PP Lungs Prov: Normal PP Abdomen/Uterus Prov: Normal PP Lochia Prov: Normal PP Vulva/Perineum Prov: Normal PP CVA Tenderness Prov: Normal PP Extremities Prov: Normal PP C/S Incision Prov: Not Applicable PP Progress Prov: Normal PP Impression Prov: Normal progression PP Plan Prov: Continue present management; Discharge PP Progress Note Prov: PPD #2 22 y/o now seen and examined at bedside this morning. No acute event overnight, patient a llanos of discharge day today. Ambulating, , voiding and tolerating PO intake w/o any diff iculty. + BM today. Denies bleeding, vomiting, nausea, chest pain, SOB. Reports mild pain but well co ntrolled on medication. Baby is doing well as per mom. Physical Exam: General: A_O, resting comfortably in bed, NAD HEENT: oral mucosa moist. Lungs: CTA B/L, no wheezing, rhonchi or rales CVS: RRR, S1, S2 ABD: ND, +BS, firm fundus @ umbilical level. Soft, appropriate TTP. EXT: no edema, negative Nando's sign, Neuro/psych: AAOX3. A/P: 22 y/o now doing well on PPD 2 OOB w/ caution Regular diet Percocet and Ibuprofen for pain management Senokat for constipation Encourage and ambulation Anticipate discharge Today Case d/w on-call OB hospitalist --- Jai Nation PGY-[address] hoffmann: patient evalauted and I agree with the above IP PP Procedures: None Vital Signs Provider PP: Reviewed Datetime: 12/10/2017 06:18 PP Nausea Prov: Denies PP BM Prov: Yes
[2017-12-11 21:32] VITALS: BP 129/77; PULSE 75; RESP 20; TEMP 98.2; O2SAT 100
== END 2017-12-11 14:30 | disposition home or self-care (01) | DRG 373 ==
LOC: H.EROB2 11:34 → H.L&D 12:12 → H.EROB2 16:33 → H.OB/GYN 12-09 05:45
PROVIDERS: ADMIT Obstetrics & Gynecology; ATTEND Obstetrics & Gynecology
PROC: 0HQ9XZZ Repair Perineum Skin, External Approach (ICD-10-PCS; principal; 2017-12-08)
PROC: 10E0XZZ Delivery of Products of Conception, External Approach (ICD-10-PCS; 2017-12-08)
PROC: 4A1HXCZ Monitoring of Products of Conception, Cardiac Rate, External Approach (ICD-10-PCS; 2017-12-08)
DX: O70.0 First degree perineal laceration during delivery (principal); K59.00 Constipation, unspecified; Z37.0 Single live birth; Z3A.39 39 weeks gestation of pregnancy; Z91.410 Personal history of adult physical and sexual abuse

== ENCOUNTER 2018-04-29 08:21 | Emergency (ER) | payer MEDICAID ==
[2018-04-29 08:21] VITALS: BMI 34.0
[2018-04-29 08:55] VITALS: BP 110/70; PULSE 80; RESP 16; TEMP 98.1; O2SAT 100
--- NOTE | 2018-04-29 10:20 | ED PDOC ---
History of Present Illness History of Present Illness: 22 year old female presents to the ED for evaluation of fever, cough, congestion , and sore throat for two days. Patient states she has been taking Ibuprofen with minimal relief. Otherwise, denies chest pain, difficulty breathing, vomiting, diarrhea, and recent travel. She does note her son is sick, as he is with her being seen in the ED. PMD: Milla Rivas HPI: Influenza Time Seen by Provider: 04/29/18 09:03 Chief Complaint: Cough, Cold, Congestion Chief Complaint (Provider): Cough, Cold, Congestion History Per: Patient Exam Limitations: no limitations Onset/Duration Of Symptoms: Days (x2) Symptoms include: fever, sore throat, cough, nasal congestion. denies: vomiting , diarrhea, chest pain, difficulty breathing Sick Contacts (Context): Family Member(s) (son) Past Medical History Reviewed: Historical Data, Nursing Documentation, Vital Signs Vital Signs: Last Vital Signs Temp 98.1 F 04/29/18 08:53 Pulse 80 04/29/18 08:53 Resp 16 04/29/18 08:53 BP 110/70 04/29/18 08:53 Pulse Ox 100 04/29/18 08:53 - Medical History PMH: No Chronic Diseases - Surgical History Surgical History: Appendectomy, - Family History Family History: States: No Known Family Hx - Social History Current smoker - smoking cessation education provided: No Alcohol: Social Drugs: Denies - Home Medications Home Medications: Ambulatory Orders Medication Instructions Recorded Pnv with Ca,No.72/Iron/FA [Pnv 1 tab PO DAILY 12/08/17 Plus Multivit Tab] Ibuprofen [Motrin Tab] 600 mg PO Q6 PRN #30 tab 12/11/17 - Allergies Allergies/Adverse Reactions: Allergies Allergy/AdvReac Type Severity Reaction Status Date / Time No Known Allergies Allergy Verified 04/11/17 03:21 Review of Systems ROS Statement: Except As Marked, All Systems Reviewed And Found Negative Constitutional: Positive for: Fever ENT: Positive for: Nose Congestion, Throat Pain Cardiovascular: Negative for: Chest Pain Respiratory: Positive for: Cough. Negative for: Shortness of Breath Gastrointestinal: Negative for: Vomiting, Diarrhea Physical Exam - Reviewed Nursing Documentation Reviewed: Yes Vital Signs Reviewed: Yes - Physical Exam Appears: Positive for: No Acute Distress Head Exam: Positive for: ATRAUMATIC, NORMOCEPHALIC ENT: Positive for: Pharyngeal Erythema (mild). Negative for: Tonsillar Exudate , Tonsillar Swelling Neurologic/Psych: Positive for: Alert, Oriented (x3). Negative for: Motor/ Sensory Deficits Medical Decision Making Medical Decision Making: Time: 09:32 Initial Impression: upper respiratory infection, sore throat Ddx: influenza, strep throat Initial Plan: --Throat culture --Influenza A B --Rapid strep Scribe Attestation: Documented by Kate Chamorro, acting as a scribe for Miko Ireland MD. Provider Scribe Attestation: All medical record entries made by the Scribe were at my direction and personally dictated by me. I have reviewed the chart and agree that the record accurately reflects my personal performance of the history, physical exam, medical decision making, and the department course for this patient. I have also personally directed, reviewed, and agree with the discharge instructions and disposition. - ECG O2 Sat by Pulse Oximetry: 100 (RA) Pulse Ox Interpretation: Normal Disposition - Clinical Impression Clinical Impression: URI (upper respiratory infection) - Patient ED Disposition Is Patient to be Admitted: No Doctor Will See Patient In The: Office Counseled Patient/Family Regarding: Studies Performed, Diagnosis, Need For Followup - Disposition Disposition: Routine/Home Disposition Time: 11:00 Condition: GOOD Additional Instructions: Take tylenol or motrin for fever or sore throat. Follow up with your PCP in 4-5 days. Instructions: Viral Upper Respiratory Infection, Adult (DC)
== END 2018-04-29 11:29 | disposition home or self-care (01) ==
LOC: H.ER 08:21
DX: J06.9 Acute upper respiratory infection, unspecified (principal)